=== PATIENT | male | born 1940 | race Caucasian/White ===

== ENCOUNTER → 2017-03-28 | Outpatient (CLI) | payer OTHER ==
[~2017-03-28] MED LIST: ALLOPURINOL300 MG PO; BACTRIM,SEPT1 TABLET PO; CARVEDILOL6.25 MG PO; CEFDINIR300 MG PO; DOXYCYCLINE HYC50 MG PO; GLIPIZIDE XL5 MG PO; K-Dur PO; KEFLEX500 MG PO; LASIX20 MG PO; LYRICA PO; LYRICA75 MG PO; Lasix PO; METFORMIN HCL1000 MG PO; METOPROLOL TART25 MG PO; SIMVASTATIN40 MG PO; Simvastatin PO; VALSARTAN-HCTZ1 EAC3 PO; VALSARTAN320 MG PO; [UNRECOGNIZED DRUG - REMARK]; allopurinol PO; diovan; metformin hcl; simvastatin PO
== END | disposition home or self-care (01) ==
LOC: NUC 03-14 14:00
DX: I42.0 Dilated cardiomyopathy (principal)
CPT/HCPCS: 78472; A9512; A9560

== ENCOUNTER 2018-03-05 13:53 | Observation (INO) | payer OTHER ==
[~2018-03-05] VITALS: Ht 188 cm; Wt 89.9 kg
[2018-03-05 14:40] LABS: HEMATOCRIT 31.4 % (38.0-50.0); HEMOGLOBIN 9.9 G/DL (12.5-16.6); MCHC 31.5 G/DL (30.0-36.0); MCV 88.7 FL (86-99); PLATELET COUNT 226 K/uL (156-360); RBC DIS.WIDTH-CV 18.8 % (11.8-14.6); RBC DIS.WIDTH-SD 60.4 % (39-53); RED BLOOD COUNT 3.54 M/uL (4.00-5.50); WHITE BLOOD COUNT 5.2 K/uL (4.1-10.2)
[2018-03-05 14:49] LABS: CHLORIDE 102 mEq/L (99-109); POTASSIUM 4.2 mEq/L (3.7-5.4); SODIUM 142 mEq/L (136-147)
[2018-03-05 14:50] LABS: GLUCOSE 147 mg/dL (70-99)
[2018-03-05 14:54] LABS: CREATININE 2.3 mg/dL (0.6-1.3); GFR ESTIMATE (CALCULATED) 30 mL/min/ (58.99-99999)
[2018-03-05 14:55] LABS: UREA NITROGEN (BUN) 46 mg/dL (9-23)
[2018-03-05 16:14] LABS: TROP-I INTERPRETATION NEGATIVE; TROPONIN-I 0.07 ng/mL (0.0-0.30)
[2018-03-05] MEDS ORDERED: FUROSEMIDE20 MG PO (17:29)
[2018-03-05] MEDS ORDERED: GABAPENTIN300 MG PO (17:30)
[2018-03-05] MEDS ORDERED: CARVEDILOL6.25 MG PO (17:31)
[2018-03-05] MEDS ORDERED: IRON325 M1 PO (17:31)
[2018-03-05 18:14] VITALS: BP 108/67
[2018-03-05 22:05] LABS: TROP-I INTERPRETATION NEGATIVE; TROPONIN-I 0.07 ng/mL (0.0-0.30)
[2018-03-06] VITALS (8 sets, daily range): BP systolic 100–126; BP diastolic 58–80
[2018-03-06 06:11] LABS: TROP-I INTERPRETATION NEGATIVE; TROPONIN-I 0.06 ng/mL (0.0-0.30)
[2018-03-07 03:45] VITALS: BP 116/59
[2018-03-07 07:26] VITALS: BP 101/67
[2018-03-07 09:19] LABS: HEMATOCRIT 33.4 % (38.0-50.0); HEMOGLOBIN 10.6 G/DL (12.5-16.6); MCHC 31.7 G/DL (30.0-36.0); MCV 88.4 FL (86-99); NRBC (%) 0.5 /100 WBC (0-0); PLATELET COUNT 224 K/uL (156-360); RBC DIS.WIDTH-CV 19.1 % (11.8-14.6); RBC DIS.WIDTH-SD 61.4 % (39-53); RED BLOOD COUNT 3.78 M/uL (4.00-5.50); WHITE BLOOD COUNT 5.8 K/uL (4.1-10.2)
[2018-03-07 09:46] LABS: CHLORIDE 101 MEQ/L (99-109); GFR ESTIMATE (CALCULATED) 39 mL/min/ (58.99-99999); POTASSIUM 3.9 MEQ/L (3.7-5.4); SODIUM 141 MEQ/L (136-147); UREA NITROGEN (BUN) 43 mg/dL (9-23)
[2018-03-07 09:49] LABS: CREATININE 1.8 MG/DL (0.6-1.3); GLUCOSE 109 mg/dL (70-99)
[2018-03-07 11:06] VITALS: BP 98/60
[2018-03-07] MEDS ORDERED: LASIX20 MG PO (11:47)
== END 2018-03-07 13:30 | disposition home or self-care (01) ==
LOC: EME 13:53 → RME 13:53 → EDOF 16:57 → 4SOUTH 16:57 → ENRESERV 17:00 → 4SOUTH 17:55
PROVIDERS: Internal Medicine; Nurse Practitioner Adult Health
DX: R07.9 Chest pain, unspecified (principal); I13.0 Hypertensive heart and chronic kidney disease with heart failure and stage 1 through stage 4 chronic kidney disease, or unspecified chronic kidney disease; I50.22 Chronic systolic (congestive) heart failure; E11.22 Type 2 diabetes mellitus with diabetic chronic kidney disease; N18.9 Chronic kidney disease, unspecified; I42.9 Cardiomyopathy, unspecified; I27.20 Pulmonary hypertension, unspecified; E11.40 Type 2 diabetes mellitus with diabetic neuropathy, unspecified; E78.5 Hyperlipidemia, unspecified; G47.33 Obstructive sleep apnea (adult) (pediatric); Z91.19 Patient's noncompliance with other medical treatment and regimen; M31.6 Other giant cell arteritis; M06.9 Rheumatoid arthritis, unspecified; Z85.820 Personal history of malignant melanoma of skin; D64.9 Anemia, unspecified; M19.90 Unspecified osteoarthritis, unspecified site; Z79.84 Long term (current) use of oral hypoglycemic drugs; Z82.49 Family history of ischemic heart disease and other diseases of the circulatory system; Z79.52 Long term (current) use of systemic steroids; Z88.5 Allergy status to narcotic agent
CPT/HCPCS: 71046; 80048; 82948; 83880; 84484; 85027; 93005; 99281; 99285; G0378; G8978 GP CH; G8979 GP CH; G8980 GP CH; G8987 GO CH; G8988 GO CH; G8989 GO CH; J1644; J1940

== ENCOUNTER 2018-03-12 07:27 | Observation (INO) | payer OTHER ==
[~2018-03-12] VITALS: Ht 188 cm; Wt 95.4 kg
[~2018-03-12 07:27] MED LIST changes: +FUROSEMIDE20 MG PO; +GABAPENTIN300 MG PO; +IRON325 M1 PO
[2018-03-12 08:01] VITALS: BP 131/93
[2018-03-12 08:16] VITALS: BP 122/83
[2018-03-12 08:22] LABS: BASOPHIL (%) 0.3 % (0-1); EOSINOPHIL (%) 1.1 % (0-5); EOSINOPHIL COUNT 0.1 K/uL (0-0.3); HEMATOCRIT 32.4 % (38.0-50.0); HEMOGLOBIN 10.3 G/DL (12.5-16.6); IMMATURE GRANULOCYTE (%) 0.3 % (0.0-0.7); LYMPHOCYTE (%) 17.1 % (15-42); LYMPHOCYTE COUNT 1.1 K/uL (1.0-2.8); MCH 28.6 PG (29.0-34.0); MCHC 31.8 G/DL (30.0-36.0); MONOCYTE (%) 6.2 % (3-12); MONOCYTE COUNT 0.4 K/uL (0-0.8); NEUTROPHIL COUNT 4.8 K/uL (1.8-6.4); PLATELET COUNT 199 K/uL (156-360); RBC DIS.WIDTH-CV 19.6 % (11.8-14.6); RBC DIS.WIDTH-SD 63.7 % (39-53); WHITE BLOOD COUNT 6.3 K/uL (4.1-10.2)
[2018-03-12 08:31] VITALS: BP 120/85
[2018-03-12 08:36] LABS: CHLORIDE 106 mEq/L (99-109); SODIUM 143 mEq/L (136-147)
[2018-03-12 08:38] LABS: GLUCOSE 123 mg/dL (70-99)
[2018-03-12 08:41] LABS: TROP-I INTERPRETATION NEGATIVE; TROPONIN-I 0.06 ng/mL (0.0-0.30)
[2018-03-12 08:42] LABS: CREATININE 2.1 mg/dL (0.6-1.3); GFR ESTIMATE (CALCULATED) 33 mL/min/ (58.99-99999)
[2018-03-12 08:43] LABS: UREA NITROGEN (BUN) 53 mg/dL (9-23)
[2018-03-12 11:13] LABS: TROP-I INTERPRETATION NEGATIVE; TROPONIN-I 0.05 ng/mL (0.0-0.30)
[2018-03-12 14:43] VITALS: BP 120/70
[2018-03-12 17:51] LABS: APPEARANCE CLEAR ((CLEAR)); BILIRUBIN NEGATIVE; BLOOD NEGATIVE; COLOR YELLOW ((YELLOW)); GLUCOSE (STRIP) NEGATIVE; KETONES NEGATIVE; LEUKOCYTES NEGATIVE; NITRITE NEGATIVE; PROTEIN (STRIP) NEGATIVE; SPECIFIC GRAVITY 1.015 (1.000-1.030); UROBILINOGEN 0.2 MG/DL (0.2-1.0)
[2018-03-12 18:30] LABS: UR CREATININE CONCENTRATION 122.3 MG/DL
[2018-03-12 18:45] VITALS: BP 105/69
[2018-03-12 23:27] VITALS: BP 114/64
[2018-03-13 03:56] VITALS: BP 133/74
[2018-03-13 05:11] LABS: BASOPHIL (%) 0.5 % (0-1); EOSINOPHIL COUNT 0.1 K/uL (0-0.3); HEMATOCRIT 31.8 % (38.0-50.0); HEMOGLOBIN 9.9 G/DL (12.5-16.6); IMMATURE GRANULOCYTE (%) 0.3 % (0.0-0.7); LYMPHOCYTE (%) 23.8 % (15-42); LYMPHOCYTE COUNT 1.5 K/uL (1.0-2.8); MCH 27.7 PG (29.0-34.0); MCHC 31.1 G/DL (30.0-36.0); MCV 88.8 FL (86-99); MONOCYTE (%) 6.8 % (3-12); MONOCYTE COUNT 0.4 K/uL (0-0.8); NEUTROPHIL (%) 67.6 % (45-76); NEUTROPHIL COUNT 4.2 K/uL (1.8-6.4); PLATELET COUNT 195 K/uL (156-360); RBC DIS.WIDTH-CV 19.8 % (11.8-14.6); RBC DIS.WIDTH-SD 63.5 % (39-53); RED BLOOD COUNT 3.58 M/uL (4.00-5.50); WHITE BLOOD COUNT 6.2 K/uL (4.1-10.2)
[2018-03-13 07:57] LABS: CHLORIDE 105 MEQ/L (99-109); CREATININE 1.9 MG/DL (0.6-1.3); GFR ESTIMATE (CALCULATED) 37 mL/min/ (58.99-99999); GLUCOSE 123 mg/dL (70-99); MAGNESIUM 2.5 mg/dl (1.3-2.7); SODIUM 141 MEQ/L (136-147); THYROTROPIN (TSH) 3.1 MIU/L (0.4-5.5); UREA NITROGEN (BUN) 54 mg/dL (9-23)
[2018-03-13 08:00] VITALS: BP 123/70
[2018-03-13 08:00] LABS: POTASSIUM 3.9 MEQ/L (3.7-5.4)
[2018-03-13 11:27] VITALS: BP 112/80
[2018-03-13 13:11] LABS: A/G RATIO 1.1 (1.1-1.8); ALBUMIN 3.9 G/DL (3.4-5.0); GLOBULINS 3.4 G/DL (2.3-3.5); TOTAL PROTEIN 7.3 G/DL (6.4-8.2)
[2018-03-13 15:27] VITALS: BP 106/66
[2018-03-13 19:45] VITALS: BP 115/71
[2018-03-14 00:21] VITALS: BP 102/63
[2018-03-14 04:20] VITALS: BP 93/53
[2018-03-14 05:54] LABS: ALBUMIN 3.7 G/DL (3.2-4.8); ALKALINE PHOSPHATASE 82 IU/L (3-129); ALT (GPT) 107 IU/L (3-49); AST (GOT) 100 IU/L (2-34); CHLORIDE 106 MEQ/L (99-109); CREATININE 1.8 MG/DL (0.6-1.3); GFR ESTIMATE (CALCULATED) 39 mL/min/ (58.99-99999); GLUCOSE 104 mg/dL (70-99); POTASSIUM 3.7 MEQ/L (3.7-5.4); SODIUM 141 MEQ/L (136-147); TOTAL BILIRUBIN 2.7 MG/DL (0.0-1.0); TOTAL PROTEIN 6.1 G/DL (6.4-8.3); UREA NITROGEN (BUN) 53 mg/dL (9-23)
[2018-03-14 07:53] VITALS: BP 104/62
[2018-03-14 11:27] VITALS: BP 104/70
[2018-03-14] MEDS ORDERED: ENTRESTO 24 MG1 EACH PO (11:59)
[2018-03-14] MEDS ORDERED: FUROSEMIDE40 MG PO (11:59)
== END 2018-03-14 13:33 | disposition home or self-care (01) ==
LOC: EME 07:27 → 4SOUTH 12:27 → EDOF 12:27 → ENRESERV 12:31 → EDOF 12:43 → ENRESERV 13:02 → 4SOUTH 14:22 → ENPENDDIS 03-14 → 4SOUTH 03-14 13:33
PROVIDERS: Emergency Medicine; Internal Medicine; Internal Medicine Nephrology; Physician Assistant
DX: I13.0 Hypertensive heart and chronic kidney disease with heart failure and stage 1 through stage 4 chronic kidney disease, or unspecified chronic kidney disease (principal); I50.23 Acute on chronic systolic (congestive) heart failure; N18.3 Chronic kidney disease, stage 3 (moderate); E11.22 Type 2 diabetes mellitus with diabetic chronic kidney disease; I42.0 Dilated cardiomyopathy; M19.90 Unspecified osteoarthritis, unspecified site; N17.9 Acute kidney failure, unspecified; K76.1 Chronic passive congestion of liver; Z91.19 Patient's noncompliance with other medical treatment and regimen; Z91.14 Patient's other noncompliance with medication regimen; E78.5 Hyperlipidemia, unspecified; I27.20 Pulmonary hypertension, unspecified; D68.9 Coagulation defect, unspecified; M10.9 Gout, unspecified; E11.51 Type 2 diabetes mellitus with diabetic peripheral angiopathy without gangrene; G47.33 Obstructive sleep apnea (adult) (pediatric); R94.31 Abnormal electrocardiogram [ECG] [EKG]; D50.9 Iron deficiency anemia, unspecified; E11.40 Type 2 diabetes mellitus with diabetic neuropathy, unspecified; Z82.49 Family history of ischemic heart disease and other diseases of the circulatory system; Z88.5 Allergy status to narcotic agent; Z79.84 Long term (current) use of oral hypoglycemic drugs; M06.9 Rheumatoid arthritis, unspecified; Z85.820 Personal history of malignant melanoma of skin
CPT/HCPCS: 71045; 76770; 78582; 80048; 80053; 81003; 82570; 82948; 83735; 83880; 83883 90; 84156; 84165; 84443; 84484; 85025; 85027; 85379; 93005; 93306; 99281; 99285; A9539; A9540; G0378; J1644; J1940

== ENCOUNTER 2018-04-12 06:58 | Observation (INO) | payer OTHER ==
[~2018-04-12] VITALS: Ht 188 cm; Wt 89.5 kg
[~2018-04-12 06:58] MED LIST changes: +COREG12.5 M1 PO; +ENTRESTO 24 MG1 EACH PO; +FUROSEMIDE40 MG PO
[2018-04-12 08:20] LABS: HEMATOCRIT 30.4 % (38.0-50.0); HEMOGLOBIN 10.2 G/DL (12.5-16.6); MCH 30.3 PG (29.0-34.0); MCHC 33.6 G/DL (30.0-36.0); MCV 90.2 FL (86-99); PLATELET COUNT 141 K/uL (156-360); RBC DIS.WIDTH-CV 17.8 % (11.8-14.6); RBC DIS.WIDTH-SD 58.7 % (39-53); RED BLOOD COUNT 3.37 M/uL (4.00-5.50); WHITE BLOOD COUNT 5.4 K/uL (4.1-10.2)
[2018-04-12 08:29] LABS: CHLORIDE 102 mEq/L (99-109); POTASSIUM 3.4 mEq/L (3.7-5.4); SODIUM 141 mEq/L (136-147)
[2018-04-12 08:31] LABS: GLUCOSE 235 mg/dL (70-99)
[2018-04-12 08:35] LABS: GFR ESTIMATE (CALCULATED) 35 mL/min/ (58.99-99999)
[2018-04-12 08:36] LABS: UREA NITROGEN (BUN) 38 mg/dL (9-23)
[2018-04-12 08:42] LABS: TROP-I INTERPRETATION NEGATIVE; TROPONIN-I 0.03 ng/mL (0.0-0.30)
[2018-04-12] MEDS ORDERED: LASIX40 MG PO (10:08)
[2018-04-12 15:16] VITALS: BP 116/65
[2018-04-12 17:08] LABS: TROP-I INTERPRETATION NEGATIVE; TROPONIN-I 0.04 ng/mL (0.0-0.30)
[2018-04-12 19:03] VITALS: BP 110/73
[2018-04-12 22:45] LABS: TROP-I INTERPRETATION NEGATIVE; TROPONIN-I 0.03 ng/mL (0.0-0.30)
[2018-04-13 00:23] VITALS: BP 110/69
[2018-04-13 04:34] VITALS: BP 100/63
[2018-04-13 05:41] LABS: HEMOGLOBIN 9.6 G/DL (12.5-16.6); MCH 29.3 PG (29.0-34.0); MCV 91.5 FL (86-99); NRBC (%) 0.4 /100 WBC (0-0); PLATELET COUNT 153 K/uL (156-360); RBC DIS.WIDTH-SD 59.5 % (39-53); RED BLOOD COUNT 3.28 M/uL (4.00-5.50); WHITE BLOOD COUNT 5.2 K/uL (4.1-10.2)
[2018-04-13 06:03] LABS: CHLORIDE 103 MEQ/L (99-109); GFR ESTIMATE (CALCULATED) 35 mL/min/ (58.99-99999); GLUCOSE 145 mg/dL (70-99); POTASSIUM 3.6 MEQ/L (3.7-5.4); SODIUM 142 MEQ/L (136-147); UREA NITROGEN (BUN) 46 mg/dL (9-23)
[2018-04-13 07:55] VITALS: BP 109/66
[2018-04-13 11:28] VITALS: BP 130/70; BP 194/86
[2018-04-13] MEDS ORDERED: KLOR-CON SPRIN10 MEQ PO (13:14)
== END 2018-04-13 13:55 | disposition home or self-care (01) ==
LOC: EME 06:58 → EDOF 09:41 → ENRESERV 09:43 → 4SOUTH 15:10
PROVIDERS: Student in an Organized Health Care Education/Training Program
DX: I13.0 Hypertensive heart and chronic kidney disease with heart failure and stage 1 through stage 4 chronic kidney disease, or unspecified chronic kidney disease (principal); I50.22 Chronic systolic (congestive) heart failure; E87.6 Hypokalemia; R09.02 Hypoxemia; I42.9 Cardiomyopathy, unspecified; I25.10 Atherosclerotic heart disease of native coronary artery without angina pectoris; Z95.810 Presence of automatic (implantable) cardiac defibrillator; E11.22 Type 2 diabetes mellitus with diabetic chronic kidney disease; E78.5 Hyperlipidemia, unspecified; I27.20 Pulmonary hypertension, unspecified; Z85.820 Personal history of malignant melanoma of skin; Z82.49 Family history of ischemic heart disease and other diseases of the circulatory system; Z88.5 Allergy status to narcotic agent; Z79.84 Long term (current) use of oral hypoglycemic drugs
CPT/HCPCS: 71046; 80048; 83880; 84484; 85027; 93005; 99281; 99284; G0378; J1644; J1940; J2405

== ENCOUNTER 2018-05-05 20:15 | Observation (INO) | payer OTHER ==
[~2018-05-05] VITALS: Ht 188 cm; Wt 86.4 kg
[~2018-05-05 20:15] MED LIST changes: +KLOR-CON SPRIN10 MEQ PO; +LASIX40 MG PO
[2018-05-05 20:58] LABS: CARBON DIOXIDE (BICARBONATE) 27.9 MEQ/L (20-31); HEMOGLOBIN 12.5 G/DL (12.5-16.6); MCH 31.2 PG (29.0-34.0); MCHC 33.8 G/DL (30.0-36.0); MCV 92.3 FL (86-99); RBC DIS.WIDTH-CV 17.7 % (11.8-14.6); RBC DIS.WIDTH-SD 60.3 % (39-53); RED BLOOD COUNT 4.01 M/uL (4.00-5.50); WHITE BLOOD COUNT 5.7 K/uL (4.1-10.2)
[2018-05-05 21:03] LABS: CHLORIDE 101 mEq/L (99-109); SODIUM 139 mEq/L (136-147)
[2018-05-05 21:05] LABS: GLUCOSE 225 mg/dL (70-99)
[2018-05-05 21:09] LABS: CREATININE 2.2 mg/dL (0.6-1.3); GFR ESTIMATE (CALCULATED) 31 mL/min/ (58.99-99999)
[2018-05-05 21:10] LABS: UREA NITROGEN (BUN) 48 mg/dL (9-23)
[2018-05-05 21:11] LABS: PLATELET COUNT 135 K/uL (156-360)
[2018-05-05 21:16] LABS: TROP-I INTERPRETATION NEGATIVE; TROPONIN-I 0.03 ng/mL (0.0-0.30)
[2018-05-05] MEDS ORDERED: GLUCOTROL XL5 MG PO (22:18)
[2018-05-06 02:00] VITALS: BP 109/82
[2018-05-06 07:44] VITALS: BP 117/82
[2018-05-06 11:07] LABS: CHLORIDE 99 MEQ/L (99-109); CREATININE 1.9 MG/DL (0.6-1.3); GFR ESTIMATE (CALCULATED) 37 mL/min/ (58.99-99999); POTASSIUM 3.7 MEQ/L (3.7-5.4); SODIUM 137 MEQ/L (136-147); UREA NITROGEN (BUN) 47 mg/dL (9-23)
[2018-05-06 11:09] LABS: GLUCOSE 350 mg/dL (70-99)
[2018-05-06 11:29] VITALS: BP 122/86
[2018-05-06] MEDS ORDERED: PROVENTIL HFA6.7 GM IH (12:44)
[2018-05-06] MEDS ORDERED: PREDNISONE10 MG PO (12:50)
== END 2018-05-06 13:36 | disposition home or self-care (01) ==
LOC: EME 20:15 → EDOF 05-06 00:28 → ENRESERV 05-06 00:29 → 4SOUTH 05-06 01:33
PROVIDERS: Emergency Medicine; Nurse Practitioner Family
DX: R06.02 Shortness of breath (principal); I42.9 Cardiomyopathy, unspecified; Z95.810 Presence of automatic (implantable) cardiac defibrillator; I13.0 Hypertensive heart and chronic kidney disease with heart failure and stage 1 through stage 4 chronic kidney disease, or unspecified chronic kidney disease; I50.22 Chronic systolic (congestive) heart failure; N18.9 Chronic kidney disease, unspecified; I27.20 Pulmonary hypertension, unspecified; E11.22 Type 2 diabetes mellitus with diabetic chronic kidney disease; E78.5 Hyperlipidemia, unspecified; Z82.49 Family history of ischemic heart disease and other diseases of the circulatory system; Z66 Do not resuscitate; Z79.84 Long term (current) use of oral hypoglycemic drugs; Z88.5 Allergy status to narcotic agent
CPT/HCPCS: 71045; 71250; 80048; 82803; 83605; 83880; 84484; 85027; 87040; 93005; 94640; 94640 76; 94799; 99202; 99281; 99285; G0378; J1644; J1940; J2920; J3475; S0028

== ENCOUNTER 2018-05-15 06:20 | Inpatient (IN) | payer OTHER ==
[~2018-05-15] VITALS: Ht 188 cm; Wt 85.1 kg
[~2018-05-15 06:20] MED LIST changes: +GLUCOTROL XL5 MG PO; +PREDNISONE10 MG PO; +PROVENTIL HFA6.7 GM IH
[2018-05-15 06:59] LABS: HEMATOCRIT 38.5 % (38.0-50.0); HEMOGLOBIN 12.8 G/DL (12.5-16.6); MCH 31.2 PG (29.0-34.0); MCHC 33.2 G/DL (30.0-36.0); MCV 93.9 FL (86-99); PLATELET COUNT 131 K/uL (156-360); RBC DIS.WIDTH-CV 18.2 % (11.8-14.6); RBC DIS.WIDTH-SD 62.3 % (39-53)
[2018-05-15 07:36] LABS: CHLORIDE 103 MEQ/L (99-109); CREATININE 1.8 MG/DL (0.6-1.3); GFR ESTIMATE (CALCULATED) 39 mL/min/ (58.99-99999); GLUCOSE 184 mg/dL (70-99); SODIUM 141 MEQ/L (136-147); UREA NITROGEN (BUN) 42 mg/dL (9-23)
[2018-05-15 08:11] LABS: TROP-I INTERPRETATION NEGATIVE; TROPONIN-I 0.05 ng/mL (0.0-0.30)
[2018-05-15] MEDS ORDERED: GLUCOTROL5 MG PO (10:00)
[2018-05-15] MEDS ORDERED: GLIPIZIDE5 MG PO (10:01)
[2018-05-15 13:25] VITALS: BP 117/76
[2018-05-15 15:58] VITALS: BP 113/77
[2018-05-15 18:26] LABS: TROP-I INTERPRETATION NEGATIVE; TROPONIN-I 0.04 ng/mL (0.0-0.30)
[2018-05-15 18:55] VITALS: BP 127/88
[2018-05-16] VITALS (8 sets, daily range): BP systolic 96–124; BP diastolic 60–79
[2018-05-16 01:24] LABS: TROP-I INTERPRETATION NEGATIVE; TROPONIN-I 0.06 ng/mL (0.0-0.30)
[2018-05-16 06:26] LABS: CHLORIDE 103 MEQ/L (99-109); CREATININE 1.8 MG/DL (0.6-1.3); GFR ESTIMATE (CALCULATED) 39 mL/min/ (58.99-99999); GLUCOSE 146 mg/dL (70-99); MAGNESIUM 2.2 mg/dl (1.3-2.7); POTASSIUM 3.2 MEQ/L (3.7-5.4); SODIUM 142 MEQ/L (136-147); UREA NITROGEN (BUN) 42 mg/dL (9-23)
[2018-05-16 15:12] LABS: COMMENTS - BLOOD GASES CATH LAB IVC; FI02 21 %; SITE CATH LAB
[2018-05-16 15:13] LABS: O2 FLOW 0 L/MIN; TOTAL RESP RATE 18 resp/min
[2018-05-16 15:14] LABS: PCO2 42 mm Hg (35-45); PO2 < 30 mm Hg (80-100); pH 7.46 (7.35-7.45)
[2018-05-16 15:15] LABS: BASE EXCESS 5.5 mEq/L (-3 to +3); BICARBONATE 29.9 mEq/L (22-26); CARBOXY HGB 1.9 % (0-5); METHEMOGLOBIN 0.8 % (0-1.5); O2 SATURATION (CALCULATED) 55.4 % (95-99)
[2018-05-16 15:16] LABS: COMMENTS - BLOOD GASES CATH LAB PA; FI02 21 %; O2 FLOW 0 L/MIN; SITE CATH LAB; TOTAL RESP RATE 18 resp/min
[2018-05-16 15:18] LABS: BASE EXCESS 5.2 mEq/L (-3 to +3); BICARBONATE 29.9 mEq/L (22-26); METHEMOGLOBIN 0.7 % (0-1.5); O2 SATURATION (CALCULATED) 59.3 % (95-99); PCO2 43 mm Hg (35-45); PO2 30 mm Hg (80-100); pH 7.45 (7.35-7.45)
[2018-05-16 15:19] LABS: FI02 21 %; SITE R RADIAL; TOTAL RESP RATE 18 resp/min
[2018-05-16 15:21] LABS: PCO2 38 mm Hg (35-45); PO2 59 mm Hg (80-100); pH 7.49 (7.35-7.45)
[2018-05-16 15:22] LABS: BASE EXCESS 5.4 mEq/L (-3 to +3); BICARBONATE 29 mEq/L (22-26); CARBOXY HGB 2.2 % (0-5); METHEMOGLOBIN 0.9 % (0-1.5); O2 SATURATION (CALCULATED) 92.7 % (95-99)
[2018-05-17 04:50] VITALS: BP 95/58
[2018-05-17 05:49] LABS: BASOPHIL (%) 0.2 % (0-1); EOSINOPHIL (%) 1.2 % (0-5); EOSINOPHIL COUNT 0.1 K/uL (0-0.3); HEMATOCRIT 37.4 % (38.0-50.0); HEMOGLOBIN 12.3 G/DL (12.5-16.6); IMMATURE GRANULOCYTE (%) 0.5 % (0.0-0.7); LYMPHOCYTE (%) 14.7 % (15-42); LYMPHOCYTE COUNT 0.9 K/uL (1.0-2.8); MCH 30.4 PG (29.0-34.0); MCHC 32.9 G/DL (30.0-36.0); MCV 92.3 FL (86-99); MONOCYTE (%) 6.1 % (3-12); MONOCYTE COUNT 0.4 K/uL (0-0.8); NEUTROPHIL (%) 77.3 % (45-76); NEUTROPHIL COUNT 4.7 K/uL (1.8-6.4); PLATELET COUNT 130 K/uL (156-360); RBC DIS.WIDTH-CV 17.9 % (11.8-14.6); RBC DIS.WIDTH-SD 61.3 % (39-53); RED BLOOD COUNT 4.05 M/uL (4.00-5.50); WHITE BLOOD COUNT 6.1 K/uL (4.1-10.2)
[2018-05-17 06:11] LABS: CHLORIDE 100 MEQ/L (99-109); GFR ESTIMATE (CALCULATED) 35 mL/min/ (58.99-99999); GLUCOSE 153 mg/dL (70-99); POTASSIUM 3.7 MEQ/L (3.7-5.4); SODIUM 141 MEQ/L (136-147); UREA NITROGEN (BUN) 49 mg/dL (9-23)
[2018-05-17 07:51] VITALS: BP 103/66
[2018-05-17 11:29] VITALS: BP 98/60
[2018-05-17] MEDS ORDERED: ENTRESTO 24 MG1 EACH PO (14:15)
[2018-05-17] MEDS ORDERED: METOLAZONE2.5 MG PO (14:15)
[2018-05-17] MEDS ORDERED: LASIX80 MG PO (14:15)
== END 2018-05-17 15:05 | disposition home health service (06) | DRG 286 ==
LOC: EME 06:20 → ENRESERVTM 10:44 → ENRESERVDT 10:44 → CANRESERV 10:44 → ENRESERV 10:44 → 4SOUTH 10:52 → EDOF 10:52 → ENRESERV 11:36 → EDOF 11:40 → ENRESERV 12:05 → 4SOUTH 13:16 → ENRESERV 05-16 15:44 → 4EAST 05-16 17:20
PROVIDERS: Hospitalist; Internal Medicine; Internal Medicine Cardiovascular Disease
PROC: 4A023N6 Measurement of Cardiac Sampling and Pressure, Right Heart, Percutaneous Approach (ICD-10-PCS; principal; 2018-05-16)
DX: I13.0 Hypertensive heart and chronic kidney disease with heart failure and stage 1 through stage 4 chronic kidney disease, or unspecified chronic kidney disease (principal); I50.23 Acute on chronic systolic (congestive) heart failure; E11.22 Type 2 diabetes mellitus with diabetic chronic kidney disease; N18.3 Chronic kidney disease, stage 3 (moderate); E87.6 Hypokalemia; I95.2 Hypotension due to drugs; T50.2X5A Adverse effect of carbonic-anhydrase inhibitors, benzothiadiazides and other diuretics, initial encounter; I08.1 Rheumatic disorders of both mitral and tricuspid valves; I25.10 Atherosclerotic heart disease of native coronary artery without angina pectoris; I27.20 Pulmonary hypertension, unspecified; E78.5 Hyperlipidemia, unspecified; E11.40 Type 2 diabetes mellitus with diabetic neuropathy, unspecified; M06.9 Rheumatoid arthritis, unspecified; I42.9 Cardiomyopathy, unspecified; Z66 Do not resuscitate; Z86.73 Personal history of transient ischemic attack (TIA), and cerebral infarction without residual deficits; Z95.0 Presence of cardiac pacemaker; Z85.820 Personal history of malignant melanoma of skin; Z95.810 Presence of automatic (implantable) cardiac defibrillator
CPT/HCPCS: 36600; 71046; 80048; 82803; 82948; 83735; 83880; 84484; 85025; 85027; 93005; 94660; 94760; 94799; 99281; 99285; C1894; G0378; J1650; J1815; J1940; J2405; J7040